=== PATIENT | female | born 1950 | race Caucasian/White ===

== ENCOUNTER → 2018-04-04 | Outpatient (CLI) | payer MEDICARE | LOC: MC.RAD 03-18 10:40 | DX: Z12.31 Encounter for screening mammogram for malignant neoplasm of breast (principal) ==

== ENCOUNTER → 2019-04-06 | Outpatient (CLI) | payer MEDICARE, OTHER | LOC: MC.RAD 14:36 | DX: Z12.31 Encounter for screening mammogram for malignant neoplasm of breast (principal) ==

== ENCOUNTER → 2020-04-15 | Outpatient (CLI) | payer MEDICARE | LOC: MC.RAD 08:39 | DX: Z12.31 Encounter for screening mammogram for malignant neoplasm of breast (principal) ==

== ENCOUNTER → 2020-09-23 | Outpatient (CLI) | payer MEDICARE | LOC: ZCOL.LAB 15:06 | DX: R06.02 Shortness of breath (principal); R07.89 Other chest pain ==

== ENCOUNTER → 2021-04-17 | Outpatient (CLI) | payer MEDICARE | LOC: MC.RAD 09:11 | DX: Z12.31 Encounter for screening mammogram for malignant neoplasm of breast (principal) ==

== ENCOUNTER 2021-09-04 00:21 | Observation (INO) | payer MEDICARE ==
[~2021-09-04] VITALS: Ht 170.2 cm; Wt 62.0 kg
[2021-09-04 00:42] LABS: BASO % 0.4 % (0.0-2.0); EOS # 0.2 K/mm3 (0.0-0.7); EOS % 1.5 % (0-4.0); GRAN # 7.2 K/mm3 (1.4-6.5); GRAN % 69.6 % (42.2-75.2); HEMATOCRIT 47.1 % (37.0-47.0); HEMOGLOBIN 14.2 g/dl (12.5-16.0); LYMPH # 2.4 K/mm3 (1.2-3.4); LYMPH % 22.7 % (20.0-51.0); MEAN CELL VOLUME 103 fl (80.0-100.0); MEAN CORPUSCULAR HEMOGLOBIN 31 pg (27.0-31.0); MEAN CORPUSCULAR HGB CONC 30 g/dl (33.0-37.0); MEAN PLATELET VOLUME 10.5 fl (7.4-10.4); MONO # 0.6 K/mm3 (0.1-0.6); MONO % 5.6 % (1.7-9.3); PLATELET COUNT 253 K/mm3 (130-400); RED BLOOD COUNT 4.57 M/mm3 (4.10-5.30); REDCELL DISTRIBUTION WIDTH-CV 12.2 % (11.5-14.5)
[2021-09-04 01:08] LABS: TROPONIN-I < 0.010 ng/mL (0.00-0.033)
[2021-09-04 01:10] LABS: ALANINE AMINOTRANSFERASE 31 U/L (0-55); ALBUMIN 4.2 gm/dL (3.4-4.8); ALKALINE PHOSPHATASE 113 U/L (40-150); ANION GAP 14 mmol/L (7-16); AST,SGOT 47 U/L (5-34); BILIRUBIN,TOTAL 0.7 mg/dL (0.2-1.2); BLOOD UREA NITROGEN 14 mg/dL (10-20); C-REACTIVE PROTEIN 0.06 mg/dL (0.00-0.50); CARBON DIOXIDE 20 mmol/L (23-31); CHLORIDE 105 mmol/L (98-107); CREATININE, serum 0.79 mg/dL (0.57-1.11); GLUCOSE 191 mg/dL (70-99); POTASSIUM 3.9 mmol/L (3.5-4.5); SODIUM 139 mmol/L (136-145); TOTAL PROTEIN 7.4 gm/dL (6.2-8.1)
[2021-09-04 01:11] LABS: LIPASE 3171 U/L (8-78)
[2021-09-04 02:26] LABS: COLLECTION METHOD CLEAN CATCH
[2021-09-04 02:31] LABS: MUCOUS Present (NOT PRESENT); PH 6 (5-8); SQUAMOUS EPITHELIAL None Seen /hpf (0-10); URINE APPEARANCE Clear (CLEAR/HAZY); URINE BACTERIA None Seen (NONE SEEN); URINE BILIRUBIN Negative (NEGATIVE); URINE BLOOD Negative (NEGATIVE); URINE COLOR Straw (YELLOW); URINE GLUCOSE Negative (NEGATIVE); URINE KETONE Negative (NEGATIVE); URINE LEUKOCYTE ESTERASE Negative (NEGATIVE); URINE NITRATE Negative (NEGATIVE); URINE PROTEIN(semi-quant) Negative (NEGATIVE); URINE RBC 0-2 /hpf (0-2); URINE UROBILINOGEN Negative (NEGATIVE)
[2021-09-04 05:43] VITALS: BP 132/70; PULSE 70; TEMP 97.9
--- NOTE | 2021-09-04 06:05 | NUR ---
PT ARRIVED TO MEDICAL FLOOR AT APPROXIMATELY 0515 VIA WHEELCHAIR BY ED STAFF TO ROOM 352.PT ABLE TO AMBULATE TO BED WITH STEADY GAIT. PT A/OX4, VSS, 02 ROOM AIR, PT REPORTS PAIN TO EPIGASTRIC REGION A PRESSURE PAIN AND RELATES IT TO A PRESSURE PAIN. ASSESMENT COMPLETE. MED REC COMPLETE. POC DISCUSSED WITH PT. PT VERBALIZES UNDERSTANDING. PT ORIENTED TO FLOOR/ROOM AND HOSPITAL POLICY. PT CONFIRMS UNDERSTANDING. N/S INFUSING AT 150CC/HR TO RW IV. ALL QUESTIONS/CONCERNS ANSWERED. PT EXPRESSES NO ADDITIONAL NEEDS AT THIS TIME. CALL LIGHT WITHIN REACH.
[2021-09-04 06:44] LABS: BASO % 0.2 % (0.0-2.0); EOS % 0.3 % (0-4.0); GRAN # 6.7 K/mm3 (1.4-6.5); GRAN % 77.9 % (42.2-75.2); HEMATOCRIT 41.2 % (37.0-47.0); HEMOGLOBIN 13.6 g/dl (12.5-16.0); LYMPH # 1.3 K/mm3 (1.2-3.4); LYMPH % 15.2 % (20.0-51.0); MEAN CORPUSCULAR HEMOGLOBIN 31 pg (27.0-31.0); MEAN CORPUSCULAR HGB CONC 33 g/dl (33.0-37.0); MEAN PLATELET VOLUME 10.6 fl (7.4-10.4); MONO # 0.5 K/mm3 (0.1-0.6); MONO % 6.3 % (1.7-9.3); PLATELET COUNT 251 K/mm3 (130-400); RED BLOOD COUNT 4.36 M/mm3 (4.10-5.30); REDCELL DISTRIBUTION WIDTH-CV 12.1 % (11.5-14.5)
[2021-09-04 06:55] LABS: CREATININE, serum 0.71 mg/dL (0.57-1.11); POTASSIUM 3.9 mmol/L (3.5-4.5)
--- NOTE | 2021-09-04 07:00 | NUR ---
Report received from SERGEI Beasley. PT in bed resting, denies needs, discussed plan of care, will continue to monitor.
[2021-09-04 07:04] LABS: MEAN CELL VOLUME 95 fl (80.0-100.0)
[2021-09-04 08:00] VITALS: BP 126/75; PULSE 71; TEMP 97.8
--- NOTE | 2021-09-04 08:33 | NUR ---
Assessment charted. Pt in bed resting, PRN pain meds given per request of pain at 6/10 to ABD. Flu shot given per request. Pt alert and oriented. IVF to RFA. Denies other needs, will continue to monitor.
--- NOTE | 2021-09-04 10:33 | NUR ---
Initial visit; Patient thanked Chief Radiology for looking in on her and offering God's blessings and continued Spiritual Care.
[2021-09-04 11:08] VITALS: BP 120/72; PULSE 68; TEMP 98.1
[2021-09-04 11:12] VITALS: BP 120/72; PULSE 67; TEMP 98.1
[2021-09-04 15:36] VITALS: BP 108/71; PULSE 78; TEMP 98.3
--- NOTE | 2021-09-04 15:39 | NUR ---
SW met with the patient to discuss discharge plan. The patient lives in [place] with her , Altaf (ph#[phone]). She reports independence with ADLs and does not have any DME. The patient's PCP is Dr. Lexi Guerrero and she receives her medications from [facility]. The patient does not have a DPOA-HC, but she states that she does have one completed and that the forms are at home. She states that she designated her . The patient plans to return home with her upon discharge. No additional needs at this time. *Discharge plan: home with *
[2021-09-04 19:24] VITALS: BP 123/85; PULSE 76; TEMP 97.8
--- NOTE | 2021-09-04 19:27 | NUR ---
Pt has done well over shift. REsting in bed, toleraing low fat diet well, denies needs or pain, will continue to monitor.
[2021-09-05 00:19] VITALS: BP 121/62; PULSE 69; TEMP 97.9
[2021-09-05 03:31] VITALS: BP 127/74; PULSE 71; TEMP 98.2
--- NOTE | 2021-09-05 06:09 | NUR ---
PT HAD UNEVENTFUL NIGHT THIS SHIFT. N/S CONTINUES TO INFUSE AT 125CC/HR. PT REPORTS NO PAIN AT THIS TIME. ALL NEEDS MET THIS NIGHT. CALL LIGHT WITHIN REACH.
[2021-09-05 08:10] VITALS: BP 120/69; PULSE 79; TEMP 98.8
[2021-09-05 08:29] LABS: BASO % 0.3 % (0.0-2.0); EOS # 0.1 K/mm3 (0.0-0.7); EOS % 2.2 % (0-4.0); GRAN # 3.5 K/mm3 (1.4-6.5); GRAN % 59.5 % (42.2-75.2); HEMATOCRIT 38.4 % (37.0-47.0); HEMOGLOBIN 12.6 g/dl (12.5-16.0); LYMPH # 1.6 K/mm3 (1.2-3.4); LYMPH % 27.1 % (20.0-51.0); MEAN CELL VOLUME 94 fl (80.0-100.0); MEAN CORPUSCULAR HEMOGLOBIN 31 pg (27.0-31.0); MEAN CORPUSCULAR HGB CONC 33 g/dl (33.0-37.0); MEAN PLATELET VOLUME 10.3 fl (7.4-10.4); MONO # 0.6 K/mm3 (0.1-0.6); MONO % 10.7 % (1.7-9.3); PLATELET COUNT 210 K/mm3 (130-400); RED BLOOD COUNT 4.09 M/mm3 (4.10-5.30); REDCELL DISTRIBUTION WIDTH-CV 12.3 % (11.5-14.5)
[2021-09-05 08:41] LABS: CALCIUM 8.2 mg/dL (8.4-10.2); CREATININE, serum 0.64 mg/dL (0.57-1.11); POTASSIUM 3.9 mmol/L (3.5-4.5)
--- NOTE | 2021-09-05 09:10 | NUR ---
Pt assessment complete. Pt is sitting up in bed upon entry, she is A/O x4. Her breathing is even and unlabored on RA. Pt denies any SOB. Denies any pain at this time. She denies any N/V. Reports she had a normal BM yesterday, she is passing gas. Hopeful to discharge home today. No needs at this time. Call light within reach.
[2021-09-05 11:38] VITALS: BP 116/61; PULSE 76; TEMP 97.9
--- NOTE | 2021-09-05 14:17 | NUR ---
Discharge paperwork and instructions reviewed with patient. All questions answered at this time. IV to R wrist dc'd catheter tip intact. Pt walked out of facility by staff at this time.
== END 2021-09-05 14:19 | disposition home or self-care (01) ==
LOC: COL.ER 00:21 → MEDICAL 02:26
PROVIDERS: Emergency Medicine; Nurse Practitioner; Physician Assistant; Student in an Organized Health Care Education/Training Program; ADMIT Internal Medicine
DX: K85.90 Acute pancreatitis without necrosis or infection, unspecified (principal); K76.9 Liver disease, unspecified; E78.5 Hyperlipidemia, unspecified; Z79.899 Other long term (current) drug therapy
CPT/HCPCS: 99222-AI; G0008; G0378; J1650; J2270; J2405; J7030; Q9967

== ENCOUNTER → 2021-11-15 | Outpatient (CLI) | payer MEDICARE | LOC: COL.RAD 07:47 | DX: K85.00 Idiopathic acute pancreatitis without necrosis or infection (principal); K76.89 Other specified diseases of liver; D18.03 Hemangioma of intra-abdominal structures ==

== ENCOUNTER 2022-01-22 09:32 | Inpatient (IN) | payer MEDICARE ==
[~2022-01-22] VITALS: Ht 170.2 cm; Wt 58.0 kg
[2022-01-22 10:09] LABS: BASO % 0.3 % (0.0-2.0); EOS % 0.1 % (0.0-4.0); GRAN # 13.4 K/mm3 (1.4-6.5); GRAN % 87.4 % (42.2-75.2); HEMATOCRIT 42.9 % (37.0-47.0); HEMOGLOBIN 14.6 g/dl (12.5-16.0); LYMPH # 1.1 K/mm3 (1.2-3.4); LYMPH % 6.8 % (20.0-51.0); MEAN CELL VOLUME 91 fl (80.0-100.0); MEAN CORPUSCULAR HEMOGLOBIN 31 pg (27-31); MEAN CORPUSCULAR HGB CONC 34 g/dl (33.0-37.0); MEAN PLATELET VOLUME 10.8 fl (7.4-10.4); MONO # 0.8 K/mm3 (0.1-0.6); PLATELET COUNT 268 K/mm3 (130-400); RED BLOOD COUNT 4.71 M/mm3 (4.10-5.30); REDCELL DISTRIBUTION WIDTH-CV 12.5 % (11.5-14.5)
[2022-01-22 10:32] LABS: TROPONIN-I < 0.010 ng/mL (0.00-0.033)
[2022-01-22 10:36] LABS: ALANINE AMINOTRANSFERASE 115 U/L (0-55); ALBUMIN 4.3 gm/dL (3.4-4.8); ALKALINE PHOSPHATASE 106 U/L (40-150); ANION GAP 12 mmol/L (7-16); AST,SGOT 183 U/L (5-34); BILIRUBIN,TOTAL 1.5 mg/dL (0.2-1.2); BLOOD UREA NITROGEN 14 mg/dL (10-20); CALCIUM 8.9 mg/dL (8.4-10.2); CARBON DIOXIDE 20 mmol/L (23-31); CHLORIDE 104 mmol/L (98-107); CREATININE, serum 0.74 mg/dL (0.57-1.11); GLUCOSE 167 mg/dL (70-99); POTASSIUM 3.7 mmol/L (3.5-4.5); SODIUM 136 mmol/L (136-145)
[2022-01-22 11:05] LABS: COLLECTION METHOD CLEAN CATCH
[2022-01-22 11:11] LABS: MUCOUS Present (NOT PRESENT); PH 8 (5-8); SQUAMOUS EPITHELIAL None Seen /hpf (0-10); URINE APPEARANCE Clear (CLEAR/HAZY); URINE BACTERIA None Seen /hpf (NONE SEEN); URINE BILIRUBIN Negative (NEGATIVE); URINE BLOOD 1+ (NEGATIVE); URINE COLOR Yellow (YELLOW); URINE GLUCOSE Negative (NEGATIVE); URINE KETONE 2+ (NEGATIVE); URINE LEUKOCYTE ESTERASE Negative (NEGATIVE); URINE NITRATE Negative (NEGATIVE); URINE PROTEIN(semi-quant) Negative (NEGATIVE); URINE RBC 0-2 /hpf (0-2)
[2022-01-22 12:11] LABS: LIPASE 16282 U/L (8-78)
[2022-01-22 12:41] VITALS: BP 113/72; PULSE 82; TEMP 97.6
[2022-01-22] MEDS ORDERED: VITAMIN C500 MG (12:45)
[2022-01-22] MEDS ORDERED: VITAMIN D3400 I1 PO (12:46)
--- NOTE | 2022-01-22 13:03 | NUR ---
PT ARRIVED, RATING PAIN IN ABD 2/10, ASSESSMENT PERFORMED, MED REC COMPLETED, ,PT UNSURE OF VITAMIN DOSAGE. PT ADMISSION COMPLETED, ALLERGY TO STATINS REPORTED. SHOWED HOW TO ORDER MEALS, EDUCATED ON VISITOR POLICY. DR. LEE CALLED FOR PAIN MEDICAITON AND ZOFRAN ORDERS FOR WHEN NEEDED
[2022-01-22 15:50] VITALS: BP 126/65; PULSE 71; TEMP 97.8
--- NOTE | 2022-01-22 16:59 | NUR ---
PT PLEASANT, AOX4, LITTLE APPETITE, REQUESTS PAIN MEDICATIONS WHEN NEEDED, UNEVENFUL SHIFT
--- NOTE | 2022-01-22 20:30 | NUR ---
Initial shift assessment done- states abd pain 2/10 at this time, denies nausea- tolerating clear liquid diet. Tele on, IV fluids of NS at 100cc/hr, Up to bathroom on his own- steardy on feet.
[2022-01-22 20:47] VITALS: BP 120/77; PULSE 75; TEMP 98.7
[2022-01-23 00:40] VITALS: BP 124/57; PULSE 73; TEMP 98.4
[2022-01-23 04:54] VITALS: BP 104/56; PULSE 73; TEMP 96.8
--- NOTE | 2022-01-23 05:16 | NUR ---
No requests, quiet night- VSS, denies pain/nausea-has slept well, IV fluids at 60cc/hr
[2022-01-23 06:22] LABS: BASO % 0.3 % (0.0-2.0); EOS % 0.4 % (0.0-4.0); GRAN # 5.6 K/mm3 (1.4-6.5); GRAN % 72.1 % (42.2-75.2); HEMATOCRIT 38.7 % (37.0-47.0); LYMPH # 1.5 K/mm3 (1.2-3.4); LYMPH % 19.2 % (20.0-51.0); MEAN CELL VOLUME 94 fl (80.0-100.0); MEAN CORPUSCULAR HEMOGLOBIN 30 pg (27-31); MEAN CORPUSCULAR HGB CONC 33 g/dl (33.0-37.0); MONO # 0.6 K/mm3 (0.1-0.6); MONO % 7.9 % (1.7-9.3); PLATELET COUNT 218 K/mm3 (130-400); RED BLOOD COUNT 4.14 M/mm3 (4.10-5.30); REDCELL DISTRIBUTION WIDTH-CV 12.8 % (11.5-14.5)
[2022-01-23 06:27] LABS: HEMOGLOBIN 12.6 g/dl (12.5-16.0)
[2022-01-23 06:45] LABS: ALBUMIN 3.5 gm/dL (3.4-4.8); CALCIUM 8.5 mg/dL (8.4-10.2); CREATININE, serum 0.72 mg/dL (0.57-1.11); PHOSPHOROUS 3.6 mg/dL (2.3-4.7); POTASSIUM 3.6 mmol/L (3.5-4.5)
[2022-01-23 07:37] VITALS: BP 111/55; PULSE 73; TEMP 98.9
--- NOTE | 2022-01-23 08:43 | NUR ---
PT PLEASANT, AOX4, PT REPORTS "TENDERNESS" IN ABD BUT NOT PAIN. ICE WATER PROVIDED, EDUCATED ON CHANGE IN DIET, PT DENIES NEED FOR PAIN MEDICATION OR NAUSEA MEDICATION, NEW FLUID BAG INFUSING PER ORDER, PT EAGER FOR DISCHARGE, NO OTHER NEEDS.
--- NOTE | 2022-01-23 09:25 | NUR ---
Social Work student met with patient to discuss discharge planning. Patient lives in [place] with her , Altaf(ph#[phone]). Patient sees Dr. Lexi Guerrero for primary care, and she receives her medications from [facility] with no cost difficulty. Patient does not utilize any durable medical equiptment nor does she have any oxygen needs. Patient states she is independent with her ADL's. Patient states she does have a DPOA-HC and is lists her as the primary agent. Patient states she is comfortable going back home when ready to discharge. *Discharge plan: Home*
--- NOTE | 2022-01-23 09:32 | NUR ---
Initial visit; Patient thanked Med Care Manager for introducing herself and offering God's blessings. Patient was using the telephone but thanked Med Care Manager also for looking in on her.
[2022-01-23 12:07] VITALS: BP 109/67; PULSE 79; TEMP 98.5
--- NOTE | 2022-01-23 14:23 | NUR ---
NO C/O PAIN, PATIENT PERFORMING ADL'S WITH NO LIMITATIONS. DISCHARGE INSTRUCTIONS GIVEN, NO QUESTIONS OR CONCERNS FROM PATIENT OR SUPPORT PERSON.
== END 2022-01-23 14:26 | disposition home or self-care (01) | DRG 440 ==
LOC: COL.ER 09:32 → MEDICAL 11:35
PROVIDERS: Physician Assistant; ADMIT Internal Medicine
DX: K85.90 Acute pancreatitis without necrosis or infection, unspecified (principal); E78.5 Hyperlipidemia, unspecified; K76.89 Other specified diseases of liver; Z23 Encounter for immunization
CPT/HCPCS: 99239; J2270; J2405; J7030; Q9967

== ENCOUNTER → 2022-02-06 | Outpatient (CLI) | payer MEDICARE ==
[~2022-02-06] MED LIST: VITAMIN C500 MG; VITAMIN D3400 I1 PO
== END ==
LOC: COL.RAD 07:11
DX: D18.03 Hemangioma of intra-abdominal structures (principal); K76.89 Other specified diseases of liver; Z87.19 Personal history of other diseases of the digestive system

== ENCOUNTER 2022-03-15 09:13 | Emergency (ER) | payer MEDICARE ==
[~2022-03-15] VITALS: Ht 170.2 cm; Wt 54.5 kg
[2022-03-15 10:32] VITALS: TEMP 98.3
[2022-03-15 11:32] LABS: HEMATOCRIT 41.8 % (37.0-47.0); HEMOGLOBIN 13.5 g/dl (12.5-16.0); MEAN CELL VOLUME 95 fl (80.0-100.0); MEAN CORPUSCULAR HEMOGLOBIN 31 pg (27-31); MEAN CORPUSCULAR HGB CONC 32 g/dl (33.0-37.0); MEAN PLATELET VOLUME 10.5 fl (7.4-10.4); PLATELET COUNT 201 K/mm3 (130-400); RED BLOOD COUNT 4.41 M/mm3 (4.10-5.30); REDCELL DISTRIBUTION WIDTH-CV 12.1 % (11.5-14.5)
[2022-03-15 11:49] LABS: BAND 1 % (0-10); LYMPHOCYTE 4 % (20.0-51.0); NEUTROPHILS 90 % (42.0-75.2)
[2022-03-15 11:50] LABS: PLATELET ESTIMATE NORMAL (NORMAL)
[2022-03-15 12:11] LABS: ALBUMIN 3.8 gm/dL (3.4-4.8); BILIRUBIN,TOTAL 1.3 mg/dL (0.2-1.2); CALCIUM 8.8 mg/dL (8.4-10.2); CREATININE, serum 0.69 mg/dL (0.57-1.11); POTASSIUM 3.9 mmol/L (3.5-4.5); TOTAL PROTEIN 6.8 gm/dL (6.2-8.1)
[2022-03-15] MEDS ORDERED: PERCOCET 325 MG1 TA2 PO (12:27)
[2022-03-15 12:43] VITALS: BP 105/70; PULSE 75
== END 2022-03-15 12:43 | disposition home or self-care (01) ==
LOC: COL.ER 09:13
PROVIDERS: Emergency Medicine; Physician Assistant
DX: K82.8 Other specified diseases of gallbladder (principal)
CPT/HCPCS: J1885; J2405

== ENCOUNTER → 2022-04-18 | Outpatient (CLI) | payer MEDICARE ==
[~2022-04-18] MED LIST changes: +PERCOCET 325 MG1 TA2 PO
== END ==
LOC: MC.RAD 08:43
DX: Z12.31 Encounter for screening mammogram for malignant neoplasm of breast (principal)

== ENCOUNTER → 2024-04-27 | Outpatient (CLI) | payer MEDICARE | LOC: MC.RAD 09:51 | DX: Z12.31 Encounter for screening mammogram for malignant neoplasm of breast (principal) ==

== ENCOUNTER 2024-05-14 12:52 | Outpatient (CLI) | payer MEDICARE ==
[~2024-05-14] VITALS: Ht 170.2 cm; Wt 59.5 kg
[2024-05-14 13:17] VITALS: BP 122/73; PULSE 73; TEMP 98
[2024-05-14] MEDS ORDERED: URITRAX47 GM PO (13:19)
[2024-05-14] MEDS ORDERED: VITAMIND3 5000 PO (13:20)
[2024-05-14] MEDS ORDERED: VITAMIN C500 MG PO (13:20)
[2024-05-14] MEDS ORDERED: RECLAST5 MG/100 M IV (13:21)
[2024-05-14] MEDS ORDERED: ESTRACE0.1 MG/GM VG (13:21)
--- NOTE | 2024-05-14 14:20 | NUR ---
Pt tolerated infusion and observation period following infusion without issue. She remains free of complaints. IV DC'd, site wrapped with coban. She and exit dept with steady gait.
== END 2024-05-14 14:20 | disposition home or self-care (01) ==
LOC: EUO 12:52
DX: M81.0 Age-related osteoporosis without current pathological fracture (principal)
CPT/HCPCS: J3489